=== PATIENT | female | born 1940 | race Two or more races ===

== ENCOUNTER → 2017-01-23 | Outpatient (CLI) | payer BC ==
[2014-06-10 08:50] VITALS: BP 138/65
[~2017-01-23] MED LIST: FOLI1TAB16 PO; IOHEXOL 240 MG/ML 50ML VIAL. PO ONE; IOHEXOL 300 MG/ML 100ML VIAL. IV ONE; METH2.5T PO; TRAM50TA PO
--- NOTE | 2017-01-23 10:37 | RAD ---
Lumbar spine, 3 views, 01/23/2017: History: Low back pain The bony structures are demineralized. There is a mild lumbar scoliosis. There is disc space narrowing and marginal spurring throughout the lumbar spine. There are moderate degenerative changes involving the facet joints bilaterally in the lower lumbar spine. There is an associated grade 1 spondylolisthesis at L5-S1. The lumbar vertebral heights are fairly well-maintained. IMPRESSION: 1. Lumbar scoliosis. 2. Moderate multilevel degenerative change. 3. Grade 1 spondylolisthesis at L4-5-S1 due to facet joint arthropathy.
--- NOTE | 2017-01-23 13:02 | RAD ---
CT of the abdomen and pelvis with contrast, 01/23/2017: History: Weight loss, left-sided pain Multidetector CT imaging was performed following oral and IV administration of contrast. No hepatic abnormality is detected. The gallbladder is unremarkable. No pancreatic abnormality is seen. The spleen is of normal size. There is mild bilateral renal cortical scarring. There is a 1.6 cm cyst arising from the lateral aspect of the right kidney. There are several other smaller subcentimeter low density lesions in both kidneys. These are too small to definitively characterize but are also probably cysts. The kidneys show no evidence of obstruction. No adrenal abnormality is detected. There is mild aortoiliac calcific plaquing without evidence of aneurysm. No abdominal or pelvic adenopathy is seen. The uterus is surgically absent. Colonic diverticula are present, most numerous in the sigmoid colon. No paracolonic inflammatory process is seen. The small bowel loops are unremarkable. No free air or free fluid is evident in the abdomen or pelvis. Moderate multilevel degenerative changes are present in the lumbar spine. IMPRESSION: 1. Bilateral renal scarring. 2. Probable small bilateral renal cysts. 3. Mild sigmoid diverticulosis. 4. No acute abdominal or pelvic abnormality is detected. PQRS Compliance Statement: One or more of the following individualized dose reduction techniques were utilized for this examination: 1. Automated exposure control 2. Adjustment of the mA and/or kV according to patient size 3. Use of iterative reconstruction technique
== END | disposition home or self-care (01) ==
LOC: CT 08:24
PROVIDERS: ATTEND Internal Medicine
DX: M51.16 Intervertebral disc disorders with radiculopathy, lumbar region (principal); K57.30 Diverticulosis of large intestine without perforation or abscess without bleeding; M43.16 Spondylolisthesis, lumbar region; N28.1 Cyst of kidney, acquired; R63.4 Abnormal weight loss
CPT/HCPCS: 72100; 74177; Q9966; Q9967

== ENCOUNTER → 2017-02-13 | Day surgery (SDC) | payer BC ==
[~2017-02-13] MED LIST changes: -FOLI1TAB16 PO; -IOHEXOL 240 MG/ML 50ML VIAL. PO ONE; -IOHEXOL 300 MG/ML 100ML VIAL. IV ONE; +LIDOCAINE 1% PF 2 ML VIAL. ID; -METH2.5T PO; +MIDAZOLAM HCL/PF 2 MG/2 ML VIAL. IV; +PROPOFOL 20 ML IV; -TRAM50TA PO; +fentaNYL PF VIAL 100 MCG/2 ML VIAL IV
[2017-02-13] MEDS: IV RINGERS,LACTATED 1000ML 1,000 ML IV (11:16)
== END | disposition home or self-care (01) ==
LOC: ENDOS 10:06
DX: K21.0 Gastro-esophageal reflux disease with esophagitis (principal); K31.89 Other diseases of stomach and duodenum; K26.9 Duodenal ulcer, unspecified as acute or chronic, without hemorrhage or perforation; E11.9 Type 2 diabetes mellitus without complications; F17.200 Nicotine dependence, unspecified, uncomplicated; Z90.710 Acquired absence of both cervix and uterus; Z87.39 Personal history of other diseases of the musculoskeletal system and connective tissue; Z86.39 Personal history of other endocrine, nutritional and metabolic disease
CPT/HCPCS: 43239; 88305; 88342; J2704

== ENCOUNTER → 2017-07-31 | Day surgery (SDC) | payer BC ==
[~2017-07-31] MED LIST changes: -MIDAZOLAM HCL/PF 2 MG/2 ML VIAL. IV; +MORPHINE SULFATE 4 MG/ML DISP.SYRIN. IV; +ONDANSETRON PF 4 MG/2 ML VIAL. IV; +PROCHLORPERAZINE 10 MG/2 ML VIAL. IV
[2017-07-31] MEDS: IV RINGERS,LACTATED 1000ML 1,000 ML IV (08:22)
[2017-07-31 08:27] LABS: POC GLUCOSE 123 mg/dL (70-99)
== END | disposition home or self-care (01) ==
LOC: ENDOS 07:38
DX: K31.1 Adult hypertrophic pyloric stenosis (principal); K31.89 Other diseases of stomach and duodenum; K21.9 Gastro-esophageal reflux disease without esophagitis; I10 Essential (primary) hypertension; E11.9 Type 2 diabetes mellitus without complications; M15.0 Primary generalized (osteo)arthritis; M06.9 Rheumatoid arthritis, unspecified; Z90.710 Acquired absence of both cervix and uterus; Z98.890 Other specified postprocedural states; Z79.84 Long term (current) use of oral hypoglycemic drugs; Z79.899 Other long term (current) drug therapy; Z88.8 Allergy status to other drugs, medicaments and biological substances; Z90.79 Acquired absence of other genital organ(s); Z90.721 Acquired absence of ovaries, unilateral; Z87.11 Personal history of peptic ulcer disease; Z87.891 Personal history of nicotine dependence
CPT/HCPCS: 43239; 82962; 88305; 88342; J2704

== ENCOUNTER → 2017-08-14 | Outpatient (CLI) | payer BC | END | disposition home or self-care (01) | LOC: US 10:23 | DX: N28.1 Cyst of kidney, acquired (principal) | CPT/HCPCS: 76700 ==